=== PATIENT | male | born 1960 | race Caucasian/White ===

== ENCOUNTER → 2017-10-17 | Outpatient (CLI) | payer OTHER ==
[2017-10-17 12:30] LABS: HEMATOCRIT 46.6 % (42.0-52.0); HEMOGLOBIN 15.9 g/dl (13.5-17.5); MEAN CORPUSCULAR HEMOGLOBIN 30.4 pg (27.0-33.0); MEAN CORPUSCULAR HGB CONC 34.1 g/dl (32.0-36.5); MEAN CORPUSCULAR VOLUME 89.1 fl (80.0-96.0); PLATELET COUNT, AUTOMATED 329 10^3/uL (150-450); RED BLOOD COUNT 5.23 10^6/uL (4.30-6.10); RED CELL DISTRIBUTION WIDTH 13.2 % (11.5-14.5); WHITE BLOOD COUNT 10.4 10^3/uL (4.0-10.0)
[2017-10-17 13:07] LABS: TESTOSTERONE 506 NG/DL (241-827); TOTAL 25(OH) VITAMIN D 45.5 NG/ML (30.0-100.0)
[2017-10-17 14:01] LABS: ALBUMIN 4.3 GM/DL (3.2-5.2); ALKALINE PHOSPHATASE 80 U/L (45-117); ALT/SGPT 24 U/L (12-78); ANION GAP 8 MEQ/L (8-16); AST/SGOT 15 U/L (7-37); BILIRUBIN,TOTAL 0.8 MG/DL (0.2-1.0); BLOOD UREA NITROGEN 16 MG/DL (7-18); CALCIUM LEVEL 9.1 MG/DL (8.5-10.1); CARBON DIOXIDE LEVEL 27 MEQ/L (21-32); CHLORIDE LEVEL 104 MEQ/L (98-107); CHOLESTEROL LEVEL 183 MG/DL (<200); CHOLESTEROL RISK RATIO 2.772 (<5); CREATININE FOR GFR 1.06 MG/DL (0.70-1.30); GLOMERULAR FILTRATION RATE > 60.0 (>56); GLUCOSE, FASTING 87 MG/DL (70-100); HDL CHOLESTEROL 66 MG/DL (>40); LDL CHOLESTEROL 105.8 MG/DL (<100); NON-HDL-C 117 MG/DL; POTASSIUM SERUM 4.5 MEQ/L (3.5-5.1); PROSTATIC SPECIFIC AG MONITOR 0.78 NG/ML (< 4.0); SODIUM LEVEL 139 MEQ/L (136-145); TOTAL PROTEIN 8.2 GM/DL (6.4-8.2); TRIGLYCERIDES LEVEL 56 MG/DL (<150)
[2017-10-17 15:21] LABS: ESTIMATED AVERAGE GLUCOSE 105 MG/DL (60-110); HEMOGLOBIN A1c 5.3 %
== END ==
LOC: M LAB 11:52
DX: E03.9 Hypothyroidism, unspecified (principal)
CPT/HCPCS: 71046

== ENCOUNTER 2018-07-22 09:10 | Emergency (ER) | payer OTHER ==
[~2018-07-22] VITALS: Ht 175.3 cm; Wt 68.2 kg
[2018-07-22] MEDS ORDERED: fentaNYL 100 MCG/2 ML INJECTION (J3010) IV ONE (09:30)
[2018-07-22] MEDS ORDERED: NS 1,000 ML IV ONE (09:30)
--- NOTE | 2018-07-22 09:51 | REP ---
RIGHT SHOULDER, TWO VIEWS: Two views of the right shoulder are performed. There is anterior dislocation of the humeral head on the glenoid fossa. There is no definite associated fracture. Electronically Signed by Chacorta Linn MD 07/22/2018 12:46 P
[2018-07-22] MEDS ORDERED: IBUP-1022 PO (10:17)
--- NOTE | 2018-07-22 10:26 | REP ---
PORTABLE RIGHT SHOULDER, SINGLE VIEW: Single portable view of the right shoulder is performed. The humeral head has been relocated into the glenoid fossa and is not well aligned, with successful reduction of the previously noted anterior dislocation. No definite acute fracture is seen. Electronically Signed by Chacorta Linn MD 07/22/2018 12:49 P
[2018-07-22 10:58] VITALS: BP 131/82
== END 2018-07-22 11:14 | disposition home or self-care (01) ==
LOC: M ED 09:10
DX: S43.014A Anterior dislocation of right humerus, initial encounter (principal); W01.0XXA Fall on same level from slipping, tripping and stumbling without subsequent striking against object, initial encounter; Y92.410 Unspecified street and highway as the place of occurrence of the external cause; J30.2 Other seasonal allergic rhinitis
CPT/HCPCS: 23650; 73020; 73030; 96360; 99284; J3010

== ENCOUNTER 2018-08-06 09:35 | Outpatient (RCR) | payer OTHER ==
[~2018-08-06 09:35] MED LIST: IBUP-1022 PO
== END 2018-08-10 ==
LOC: M PT 09:35
PROVIDERS: ATTEND Orthopaedic Surgery Sports Medicine
DX: S43.004D Unspecified dislocation of right shoulder joint, subsequent encounter (principal); X58.XXXD Exposure to other specified factors, subsequent encounter

== ENCOUNTER → 2018-08-28 | Outpatient (CLI) | payer OTHER ==
--- NOTE | 2018-08-28 17:41 | REP ---
MRI RIGHT SHOULDER: TECHNIQUE: Axial T2 fat sat, gradient echo, sagittal oblique T2 fat sat, coronal oblique T1, T2 fat sat. There is ill defined high signal on T2 weighted images involving the supraspinatus and subscapularis tendons compatible with a moderate degree of tendinopathy/tendinitis. No full thickness rotator cuff tendon tear is seen. There are very mild hypertrophic degenerative changes of the acromioclavicular joint. Acromion is type 2. Biceps tendon is within the bicipital groove with moderate surrounding fluid suspicious for tenosynovitis. There is a small Hill Sach's deformity of the superolateral humeral head with associated marrow edema. There is no abnormal signal in the deltoid muscle. There is fraying of the biceps labral complex. There is diffuse fraying of the superior labrum. I suspect a small tear of the peripheral anterior labrum there is a moderate joint effusion. IMPRESSION: Very mild hypertrophic degenerative changes of the acromioclavicular joint. Supraspinatus and subscapularis tendinopathy/tendinitis. Moderate fluid surround the biceps tendon may represent tenosynovitis. There is a small Hill Sach's deformity with associated marrow edema and bone bruising of the humeral head. There is fraying of the biceps labral complex with diffuse fraying of the entire superior labrum. I suspect a small tear of the peripheral aspect of the anterior labrum. Moderate joint effusion. Electronically Signed by Chacorta Linn MD 08/31/2018 07:20 P
--- NOTE | 2018-08-28 17:55 | REP ---
MRI LEFT SHOULDER: TECHNIQUE: Axial T2 fat sat, gradient echo, sagittal oblique T2 fat sat, coronal oblique T1, T2 fat sat. There is mild to moderate ill-defined high signal in the supraspinatus and subscapularis tendons compatible with moderate degree of tendinopathy/tendinitis. I do not see a discrete rotator cuff tendon tear. There are mild hypertrophic degenerative changes of the acromioclavicular joint. Acromion is type 2. Biceps tendon is within the bicipital groove with moderate surrounding fluid. This may indicate tenosynovitis. There is no Hill Sach's deformity. The deltoid muscle demonstrates no abnormal signal. There is fraying of the biceps labral complex. There is fraying of the entire superior labrum diffusely. Otherwise no labral tear is seen. Subchondral cystic changes are seen in the superolateral humeral head. There is a small joint effusion. A small amount of fluid is seen in the subacromial subdeltoid bursae. This may indicate mild bursitis. IMPRESSION: Supraspinatus and subscapularis tendinopathy/tendinitis without a discrete rotator cuff tendon tear. Mild hypertrophic degenerative changes of the acromioclavicular joint. Moderate fluid surrounding the biceps tendon in the bicipital groove may represent tenosynovitis. There is fraying of the biceps labral complex and also the superior labrum diffusely. Mild subchondral cystic change superolateral humeral head. Small joint effusion. Small amount of fluid in the subacromial subdeltoid bursae may indicate mild bursitis. Electronically Signed by Chacorta Linn MD 08/31/2018 07:21 P
== END ==
LOC: M RAD 15:14
PROVIDERS: ATTEND Orthopaedic Surgery Sports Medicine
DX: S42.201A Unspecified fracture of upper end of right humerus, initial encounter for closed fracture (principal); M25.411 Effusion, right shoulder; M19.012 Primary osteoarthritis, left shoulder; M25.512 Pain in left shoulder; S43.004A Unspecified dislocation of right shoulder joint, initial encounter; X58.XXXA Exposure to other specified factors, initial encounter; Y92.9 Unspecified place or not applicable; Y93.9 Activity, unspecified; Y99.9 Unspecified external cause status

== ENCOUNTER 2018-09-08 08:49 | Outpatient (RCR) | payer OTHER | END 2018-09-10 | LOC: M PT 08:49 | PROVIDERS: ATTEND Orthopaedic Surgery Sports Medicine | DX: S43.004A Unspecified dislocation of right shoulder joint, initial encounter (principal) ==

== ENCOUNTER → 2020-09-27 | Outpatient (CLI) | payer OTHER ==
--- NOTE | 2020-09-27 11:23 | REP ---
INDICATION: HTN- LABS AND EKG FIRST COMPARISON: 10/17/2017 TECHNIQUE: PA and lateral. FINDINGS: The mediastinum and cardiac silhouette are normal. The lung gruber demonstrate chronic emphysematous changes. No acute consolidation, effusion, or pneumothorax. The skeletal structures are intact and normal. IMPRESSION: No acute cardiopulmonary process. Chronic changes. <Electronically signed by Juan A Dewitt > 09/27/20 1110
[2020-09-27 11:38] LABS: HEMATOCRIT 45.8 % (42.0-52.0); HEMOGLOBIN 15.4 g/dl (13.5-17.5); MEAN CORPUSCULAR HEMOGLOBIN 29.8 pg (27.0-33.0); MEAN CORPUSCULAR HGB CONC 33.6 g/dl (32.0-36.5); MEAN CORPUSCULAR VOLUME 88.6 fl (80.0-96.0); PLATELET COUNT, AUTOMATED 325 10^3/uL (150-450); RED BLOOD COUNT 5.17 10^6/uL (4.30-6.10); WHITE BLOOD COUNT 11.7 10^3/uL (4.0-10.0)
[2020-09-27 11:57] LABS: HEMOGLOBIN A1c 5.4 %
[2020-09-27 12:28] LABS: ALBUMIN 4.1 GM/DL (3.2-5.2); ALT/SGPT 25 U/L (12-78); BILIRUBIN,TOTAL 0.7 MG/DL (0.2-1.0); BLOOD UREA NITROGEN 14 MG/DL (7-18); CALCIUM LEVEL 8.9 MG/DL (8.5-10.1); CARBON DIOXIDE LEVEL 28 MEQ/L (21-32); CHLORIDE LEVEL 107 MEQ/L (98-107); CHOLESTEROL LEVEL 170 MG/DL (<200); CHOLESTEROL RISK RATIO 3.269 (<5); CREATININE FOR GFR 0.89 MG/DL (0.70-1.30); GLOMERULAR FILTRATION RATE > 60.0 (>56); GLUCOSE, FASTING 94 MG/DL (70-100); HDL CHOLESTEROL 52 MG/DL (>40); LDL CHOLESTEROL 98 MG/DL (<100); NON-HDL-C 118 MG/DL; POTASSIUM SERUM 4.6 MEQ/L (3.5-5.1); PROSTATIC SPECIFIC AG MONITOR 0.73 NG/ML (< 4.00); SODIUM LEVEL 139 MEQ/L (136-145); TESTOSTERONE 563 NG/DL (241-827); TOTAL 25(OH) VITAMIN D 32.5 NG/ML (30.0-100.0); TOTAL PROTEIN 7.3 GM/DL (6.4-8.2); TRIGLYCERIDES LEVEL 99 MG/DL (<150)
--- NOTE | 2020-09-28 23:36 | ECGEPIP ---
[facility] Test Date: 2020-09-27 Pat Name: TROY LEE Department: Room: - Gender: Male [employer]: CORY : 1960 Requested By: José Miguel Arnold Order Number: [id number] Reading MD: Humphrey Good Measurements Intervals [place] Rate: 51 P: 68 DC: 138 QRS: 58 QRSD: 92 T: 46 QT: 404 QTc: 372 Interpretive Statements Sinus bradycardia, V1 & V3 lead reversal,Otherwise within normal limits. Increased heart rate compared with 10/17/2017. Electronically Signed on 09-28-2020 23:36:17 EDT by Humphrey Good
== END ==
LOC: M LAB 10:42
PROVIDERS: ATTEND Family Medicine
DX: I10 Essential (primary) hypertension (principal)

== ENCOUNTER → 2020-12-16 | Outpatient (CLI) | payer OTHER ==
[~2020-12-16] MED LIST changes: +CVS10CAP7 PO
--- NOTE | 2020-12-16 14:51 | REP ---
INDICATION: PAIN. COMPARISON: None. TECHNIQUE: Four views left foot 2nd digit FINDINGS: There is a comminuted fracture of the distal phalanx of the 2nd digit IMPRESSION: Fracture as described above. <Electronically signed by Juan Bright > 12/16/20 [id number]
== END ==
LOC: M WUC 13:57
PROVIDERS: ATTEND Nurse Practitioner Family
DX: M79.675 Pain in left toe(s) (principal)

== ENCOUNTER → 2020-12-24 | Outpatient (CLI) | payer OTHER, SELFPAY | LOC: M LABSMTC 11:40 | PROVIDERS: ATTEND Anesthesiology | DX: Z01.818 Encounter for other preprocedural examination (principal); Z11.52 Encounter for screening for COVID-19 ==

== ENCOUNTER 2020-12-29 07:53 | Day surgery (SDC) | payer OTHER ==
[~2020-12-29] VITALS: Ht 175.3 cm; Wt 72.5 kg
[~2020-12-29 07:53] MED LIST changes: +NS 1,000 ML IV ONE
[2020-12-29] MEDS ORDERED: propofoL 200 MG/20 ML VIAL As Ordered ONE (09:38)
[2020-12-29 10:05] VITALS: BP 130/80
== END 2020-12-29 10:16 | disposition home or self-care (01) ==
LOC: M OPP 07:53
PROVIDERS: ATTEND Surgery
DX: Z12.11 Encounter for screening for malignant neoplasm of colon (principal); K57.30 Diverticulosis of large intestine without perforation or abscess without bleeding

== ENCOUNTER → 2022-08-15 | Outpatient (CLI) | payer OTHER ==
[~2022-08-15] MED LIST changes: -NS 1,000 ML IV ONE
== END ==
LOC: M RAD 09:21
PROVIDERS: ATTEND Family Medicine
DX: Z01.818 Encounter for other preprocedural examination (principal); R00.1 Bradycardia, unspecified; I10 Essential (primary) hypertension; J44.9 Chronic obstructive pulmonary disease, unspecified

== ENCOUNTER 2024-12-18 09:45 | Emergency (ER) | payer OTHER ==
[~2024-12-18] VITALS: Ht 175.3 cm; Wt 71.9 kg
[~2024-12-18 09:45] MED LIST changes: -IBUP-1022 PO; +IBUP600T42 PO
[2024-12-18 12:14] VITALS: BP 161/85; TEMP 97; O2SAT 97
[2024-12-18 12:25] LABS: BASO # 0.1 10^3/uL (0.0-0.2); BASO % 0.5 % (0.0-1.0); EOS # 0.3 10^3/uL (0.0-0.5); EOS % 2.1 % (0.0-3.0); LYMPH # 3.5 10^3/uL (1.5-5.0); LYMPH % 26.8 % (24.0-44.0); MONO # 0.8 10^3/uL (0.0-0.8); MONO % 5.7 % (2.0-8.0); NEUTROPHILS # 8.5 10^3/uL (1.5-8.5); NEUTROPHILS % 64.4 % (36.0-66.0); PLATELET COUNT, AUTOMATED 382 10^3/uL (150-450)
[2024-12-18 12:52] LABS: ALT/SGPT 25 U/L (7.0-40); AST/SGOT 20 U/L (<34); C REACTIVE PROTEIN QUANTITATIV < 0.50 MG/DL (<1.0); CALCIUM LEVEL 9.1 MG/DL (8.3-10.6); CARBON DIOXIDE LEVEL 29 MMOL/L (20-31); CHLORIDE LEVEL 101 MMOL/L (98-107); CREATININE FOR GFR 0.89 MG/DL (0.70-1.30); GLOMERULAR FILTRATION RATE > 90.0 (>49); POTASSIUM SERUM 4.5 MMOL/L (3.5-5.1); SODIUM LEVEL 138 MMOL/L (136-145)
== END 2024-12-18 12:15 | disposition home or self-care (01) ==
LOC: M ED 09:45
DX: S30.861A Insect bite (nonvenomous) of abdominal wall, initial encounter (principal); W57.XXXA Bitten or stung by nonvenomous insect and other nonvenomous arthropods, initial encounter; Y92.9 Unspecified place or not applicable; Y93.9 Activity, unspecified; Y99.9 Unspecified external cause status; Z91.09 Other allergy status, other than to drugs and biological substances; Z79.1 Long term (current) use of non-steroidal anti-inflammatories (NSAID); Z79.899 Other long term (current) drug therapy

== ENCOUNTER → 2024-12-22 | Outpatient (REF) | payer OTHER | LOC: M SFHCDERM 17:56 | PROVIDERS: ATTEND Physician Assistant | DX: D48.9 Neoplasm of uncertain behavior, unspecified (principal) ==